=== PATIENT | male | born 1995 | race Caucasian/White ===

== ENCOUNTER → 2017-08-21 | Day surgery (SDC) | payer OTHER ==
[2017-08-18 08:55] VITALS: BMI 24.4
[~2017-08-21] MED LIST: LACTATED RINGERS 1,000 ML IV ONE; LACTATED RINGERS 1,000 ML IV SCH; LIDOCAINE 1% 20 ML VIAL (10MG/ML) FOR IV START INTRADERMA PRN; PROPOFOL 10 MG/ML 20 ML VIAL IV ONE
[2017-08-21 07:44] VITALS: RESP 16; TEMP 98.4
[2017-08-21 09:08] VITALS: BP 115/68
--- NOTE | 2017-08-21 09:12 | P.PCN ---
Date of Procedure: 08/21/17 Procedure(s) Performed: Procedure: Esophagogastroduodenoscopy and biopsy. Preoperative diagnosis: Chronic reflux symptoms. Postoperative diagnosis: 1. Sliding hiatal hernia with low-grade distal esophagitis. 2. Mild antral gastritis. 3. Multiple biopsies obtained from the duodenum, antrum and esophagus. Preparation sedation: Was provided by anesthesia. Brief clinical history: The patient is a 22-year-old male is scheduled for this evaluation because of chronic reflux symptoms requiring therapy. The patient reports symptoms off medications after on a few days including morning nausea and heartburn. No alarm symptoms or anemia. Procedure: With the patient on his left lateral decubitus position and after informed consent and adequate sedation, I passed the Olympus-GIF 160 video upper endoscope through the cricopharyngeus down the esophagus. GE junction was around 41 cm from the incisors and there was a small sliding hiatal hernia. There were couple short linear erosions close to the GE junction consistent with LA grade A distal esophagitis. There were no ulcers, strictures or Garrison 's esophagus. There was a widely patent B ring at the level of the GE junction. The endoscope was then passed into the stomach which was insufflated with air and inspected in detail including the retroflex view in the cardia. There was some mottling and erythema in the antrum but no ulcers or erosions. Pyloric channel, duodenal bulb, post bulbar area and descending duodenum appeared within normal limits. I obtained biopsies from the duodenum, antrum and esophagus then the endoscope was with. The patient tolerated the procedure well. Plan: The patient was reassured. Will continue antireflux diet and measures and acid suppressive therapy. I will see him in follow-up and make additional adjustment based on his course. I will keep you updated on his progress.
[2017-08-21 09:15] VITALS: PULSE 77
== END ==
LOC: ORWHC2ENDO 07:33
DX: K29.50 Unspecified chronic gastritis without bleeding (principal); K21.0 Gastro-esophageal reflux disease with esophagitis; K44.9 Diaphragmatic hernia without obstruction or gangrene; Z79.899 Other long term (current) drug therapy; F17.210 Nicotine dependence, cigarettes, uncomplicated
CPT/HCPCS: 88305; 43239; J2704